=== PATIENT | female | born 1985 | race Caucasian/White ===

== ENCOUNTER 2019-01-03 19:33 | Emergency (ER) | payer MEDICAID ==
[~2019-01-03] VITALS: Ht 162.6 cm; Wt 88.5 kg
[2019-01-03 19:44] VITALS: BP 113/67
--- NOTE | 2019-01-03 19:52 | NUR ---
PT TAKEN BACK TO LOBBY VIA A/W AVAILABLE BED.
--- NOTE | 2019-01-03 21:11 | NUR ---
PT BIB W/C TO ER BED 5
[2019-01-03 21:17] VITALS: BP 113/67
--- NOTE | 2019-01-03 21:17 | NUR ---
33 Y/O F PRESENTED TO ED WITH C/O R FOOT PAIN. PER PT "I WAS BITTEN BY A FLEE ON SUNDAY. I WAS CLEANING TODAY AND THEN MY FOOT JUST STARTED TO SWELL AND NOW I CANT EVEN WALK ON IT. ECCHYMOSIS NOTED TO R FOOT. +CMS. NON-PITTING EDEMA NOTED TO R FOOT. PT DENIES PAIN, STATING "IT DOESNT HURT BUT ITS UNCOMFORTABLE TO WALK ON." ERMD NOTIFIED OF PT STATUS. BED IN LOWEST IN POSTION. WILL CONTINUE TO MONITOR.
--- NOTE | 2019-01-03 21:52 | NUR ---
ULTRASOUND AT BEDSIDE.
--- NOTE | 2019-01-03 22:28 | NUR ---
Patient discharged with v/s stable. Written and verbal after care instructions given and explained by Dr. Bass. Patient verbalized understanding. Wheel Chair Assisted by EMT. All questions addressed prior to discharge. Advised to follow up with PMD.
== END 2019-01-03 22:28 | disposition home or self-care (01) ==
LOC: MED 19:33
DX: S90.861A Insect bite (nonvenomous), right foot, initial encounter (principal); I89.0 Lymphedema, not elsewhere classified; W57.XXXA Bitten or stung by nonvenomous insect and other nonvenomous arthropods, initial encounter; Y93.89 Activity, other specified; Y92.89 Other specified places as the place of occurrence of the external cause; Y99.8 Other external cause status
CPT/HCPCS: 93970; 99284; Q0092